=== PATIENT | female | born 1995 | race Caucasian/White ===

== ENCOUNTER 2017-09-14 21:17 | Inpatient (IN) | payer OTHER ==
[~2017-09-14] VITALS: Ht 175.3 cm; Wt 102.6 kg
[~2017-09-14 21:17] MED LIST: APRI28 PO; LAMO1TAB21 PO; NRN400 PO; OMEP20CA9 PO; PRZ1 PO; PXL/10 PO; RANI150T2 PO; ZYP5 PO
[2017-09-14] MEDS ORDERED: PRAZ2CAP2 PO (21:45)
[2017-09-14] MEDS ORDERED: ZYP10 PO (21:45)
[2017-09-14] MEDS ORDERED: DSY/150 PO (21:45)
[2017-09-14] MEDS ORDERED: GABA1CAP4 PO (21:45)
[2017-09-14 21:48] LABS: MANUAL MICROSCOPIC REQUIRED? NO; REVIEW REQ? NO; URINE APPEARANCE CLEAR (CLEAR); URINE BILIRUBIN NEG (NEG); URINE COLOR YELLOW; URINE EPITHELIAL CELL AUTO >30 /lpf (0-5); URINE NITRITE NEG (NEG); URINE PH 6.5 (4.5-7.5); URINE SPECIFIC GRAVITY 1.021 (1.000-1.030); UROBILINOGEN NEG (NEG); ZZUR CULT IF INDIC CLEAN CATCH NO
[2017-09-14 21:49] LABS: PREG INTERNAL NEGATIVE QC NEG CLEAR BACKGROUND; PREG INTERNAL POSITIVE QC POS CONTROL LINE
[2017-09-14 21:58] LABS: BASO % 0.3 %; BASO ABS # 0.03 K/uL (0-0.2); COMPLETE YES; EOS % 1.4 %; HEMATOCRIT 43.6 % (37-47); IG% 0.3 %; LYMPH ABS # 3.65 K/uL (1.2-3.4); MEAN CELL VOLUME 88.3 fL (80-100); MEAN CORPUSCULAR HEMOGLOBIN 30.4 pg (25-34); MEAN CORPUSCULAR HGB CONC 34.4 g/dl (32-36); MEAN PLATELET VOLUME 9.4 fL (7.4-10.4); MONO % 4.8 %; NEUT % 62.2 %; PLATELET COUNT 353 K/uL (130-400); RED BLOOD COUNT 4.94 M/uL (4.2-5.4); WHITE BLOOD COUNT 11.76 K/uL (4.8-10.8)
[2017-09-14] MEDS ORDERED: TRAZODONE HCL 100 MG TAB PO STA (22:11)
[2017-09-14] MEDS ORDERED: OLANZAPINE 10 MG TAB PO STA (22:11)
[2017-09-14] MEDS ORDERED: GABAPENTIN 300 MG CAP PO STA (22:11)
[2017-09-14 22:19] LABS: BLOOD UREA NITROGEN 8 mg/dl (7-18); BUN/CREATININE RATIO 9.7 (10-20); CALCIUM 8.7 mg/dl (8.5-10.1); CARBON DIOXIDE 24 mmol/L (21-32); CHLORIDE 106 mmol/L (98-107); CREATININE 0.82 mg/dl (0.60-1.20); GLUCOSE 125 mg/dl (70-99); POTASSIUM 3.4 mmol/L (3.5-5.1); SODIUM 137 mmol/L (136-145)
[2017-09-14 22:21] LABS: BUN/CREATININE RATIO 9.2 (10-20); CALCIUM 8.7 mg/dl (8.5-10.1); CREATININE 0.82 mg/dl (0.60-1.20); POTASSIUM 3.4 mmol/L (3.5-5.1)
[2017-09-14 22:23] LABS: ALKALINE PHOSPHATASE 78 U/L (45-117); ALT/SGPT 17 U/L (12-78); AST/SGOT 11 U/L (15-37)
[2017-09-14] MEDS ORDERED: POTASSIUM CHLORIDE 20 MEQ/15 ML UDC PO STA (22:23)
--- NOTE | 2017-09-14 22:23 | EMERGENCY ROOM VISIT NOTE ---
History Report prepared by Sary: Lakhwinder Frey Under the Supervision of: Dr. Ferny Goldstein M.D. First contact with patient: 21:32 Chief Complaint: MENTAL HEALTH EVALUATION Stated Complaint: MEDICAL CLEARANCE, EVAL History of Present Illness The patient is a 22 year old female who presents to the Emergency Room with complaints of intermittent suicidal ideations that began a couple of days ago. Per the patient's report the patient has a history PTSD, bipolar syndrome, depression, and possible schizophrenia. The patient attempted to kill herself when she was inpatient at the age of 11. The patient was recently admitted into [facility] in 2014. She recently attempted put a towel on a bar to hang herself a month ago. The patient states that she has been around her mother who has been causing her stress recently. She admits that she missed a dose of her medication last night because she did not expect to sleep at her boyfriend's place.The patient states that she has been having thoughts of suicide today. She states that she has not used heroine for a year, but has thought about buying more with attempts to hurt herself. The patient reports that her boyfriend called [facility] due to her suicidal ideations. The patient states that she no longer wants to and does not want to go back to "where I used to be". She reports that her last normal menstrual period was 2-3 weeks ago. The patient denies retaining a tampon and a possible . Source of History: patient Onset: a couple of days ago Position: other (global) Quality: other (global) Timing: intermittent Review of Systems See HPI for pertinent positives & negatives. A total of 10 systems reviewed and were otherwise negative. Past Medical & Surgical Medical Problems: (1) Anxiety (2) Bipolar disorder (3) Chronic abdominal pain (4) PTSD (post-traumatic stress disorder) Family History No significant family history Social History Smoking Status: Current Every Day Smoker Alcohol Use: none Drug Use: heroin, marijuana, other Marital Status: single Housing Status: other Occupation Status: unemployed Current/Historical Medications Scheduled Ethinyl Estrad/Desogestrel (Apri), 1 TAB PO DAILY Gabapentin (Gabapentin), 300 MG PO TID Olanzapine (Olanzapine), 10 MG PO HS Prazosin Hcl (Prazosin), 4 MG PO HS Ranitidine HCl (Ranitidine HCl), 150 MG PO BID Trazodone HCl (Trazodone HCl), 150 MG PO HS Allergies Coded Allergies: No Known Allergies (Unverified , 09/14/17) Physical Exam Vital Signs Date Time Temp Pulse Resp B/P (MAP) Pulse Ox O2 Delivery O2 Flow Rate FiO2 09/14/17 21:24 36.8 114 18 150/93 98 Room Air Physical Exam GENERAL: Patient is a healthy-appearing well-nourished 22 year old female. She is playing video games on her phone. HEAD: Normocephalic atraumatic EYES: Ocular movements intact pupils equal and react to light OROPHARYNX mucous membranes are moist no exudates present no erythema or edema present NECK: Supple no nuchal rigidity CHEST: Good equal expansion LUNGS: Clear and equal to auscultation CARDIAC: Normal S1 and S2 ABDOMEN: Soft nontender no guarding BACK: No CVA tenderness EXTREMITIES: No pain upon palpation normal muscle strength in all groups no clubbing cyanosis or edema NEURO: Patient is following commands and answering questions appropriately. Alert and oriented x3 Cranial Nerves 2-12 grossly intact Medical Decision & Procedures Laboratory Results 09/14/17 21:41 Red Blood Count 4.94, Mean Corpuscular Volume 88.3, Mean Corpuscular Hemoglobin 30.4, Mean Corpuscular Hemoglobin Concent 34.4, Mean Platelet Volume 9.4, Neutrophils (%) (Auto) 62.2, Lymphocytes (%) (Auto) 31.0, Monocytes (%) (Auto) 4.8, Eosinophils (%) (Auto) 1.4, Basophils (%) (Auto) 0.3, Neutrophils # (Auto) 7.32, Lymphocytes # (Auto) 3.65, Monocytes # (Auto) 0.56, Eosinophils # (Auto) 0.17, Basophils # (Auto) 0.03 09/14/17 21:41 Test 09/14/17 21:35 09/14/17 21:40 09/14/17 21:41 Urine Color YELLOW Urine Appearance CLEAR (CLEAR) Urine pH 6.5 (4.5-7.5) Urine Specific [place] 1.021 (1.000-1.030) Urine Protein NEG (NEG) Urine Glucose (UA) NEG (NEG) Urine Ketones NEG (NEG) Urine Occult Blood 2+ (NEG) Urine Nitrite NEG (NEG) Urine Bilirubin NEG (NEG) Urine Urobilinogen NEG (NEG) Urine Leukocyte Esterase TRACE (NEG) Urine WBC (Auto) 1-5 /hpf (0-5) Urine RBC (Auto) 10-30 /hpf (0-4) Urine Hyaline Casts (Auto) 0 /lpf (0-5) Urine Epithelial Cells (Auto) >30 /lpf (0-5) Urine Bacteria (Auto) NEG (NEG) Urine Test NEG (NEG) Urine Opiates Screen NEG (NEG) Urine Methadone, Qualitative NEG (NEG) Urine Barbiturates NEG (NEG) Urine Phencyclidine (PCP) Level NEG (NEG) Ur Amphetamine/Methamphetamine POS (NEG) MDMA (Ecstasy) Screen POS (NEG) Urine Benzodiazepines Screen NEG (NEG) Urine Cocaine Metabolite NEG (NEG) Urine Marijuana (THC) POS (NEG) White Blood Count 11.76 K/uL (4.8-10.8) Red Blood Count 4.94 M/uL (4.2-5.4) Hemoglobin 15.0 g/dL (12.0-16.0) Hematocrit 43.6 % (37-47) Mean Corpuscular Volume 88.3 fL (80-100) Mean Corpuscular Hemoglobin 30.4 pg (25-34) Mean Corpuscular Hemoglobin Concent 34.4 g/dl (32-36) Platelet Count 353 K/uL (130-400) Mean Platelet Volume 9.4 fL (7.4-10.4) Neutrophils (%) (Auto) 62.2 % Lymphocytes (%) (Auto) 31.0 % Monocytes (%) (Auto) 4.8 % Eosinophils (%) (Auto) 1.4 % Basophils (%) (Auto) 0.3 % Neutrophils # (Auto) 7.32 K/uL (1.4-6.5) Lymphocytes # (Auto) 3.65 K/uL (1.2-3.4) Monocytes # (Auto) 0.56 K/uL (0.11-0.59) Eosinophils # (Auto) 0.17 K/uL (0-0.5) Basophils # (Auto) 0.03 K/uL (0-0.2) RDW Standard Deviation 45.9 fL (36.4-46.3) RDW Coefficient of Variation 14.1 % (11.5-14.5) Immature Granulocyte % (Auto) 0.3 % Immature Granulocyte # (Auto) 0.03 K/uL (0.00-0.02) Anion Gap 8.0 mmol/L (3-11) Est Creatinine Clear Calc Drug Dose 129.5 ml/min Estimated GFR () 116.9 Estimated GFR (Non- 100.9 BUN/Creatinine Ratio 9.7 (10-20) Calcium Level 8.7 mg/dl (8.5-10.1) Total Bilirubin 0.2 mg/dl (0.2-1) Direct Bilirubin < 0.1 mg/dl (0-0.2) Aspartate Amino Transf (AST/SGOT) 11 U/L (15-37) Alanine Aminotransferase (ALT/SGPT) 17 U/L (12-78) Alkaline Phosphatase 78 U/L (45-117) Total Protein 8.2 gm/dl (6.4-8.2) Albumin 3.3 gm/dl (3.4-5.0) Globulin 4.8 gm/dl (2.5-4.0) Albumin/Globulin Ratio 0.7 (0.9-2) Thyroid Stimulating Hormone (TSH) 1.970 uIu/ml (0.300-4.500) Salicylates Level 3.3 mg/dl (2.8-20) Acetaminophen Level < 2 ug/ml (10-30) Ethyl Alcohol mg/dL < 3.0 mg/dl (0-3) Labs reviewed by ED physician. Medications Administered Medications (Trade) Dose Ordered Sig/Mary Carmen Route Start Time Stop Time Status Last Admin Dose Admin Gabapentin (Neurontin Cap) 300 mg NOW STAT PO 09/14/17 22:11 09/14/17 22:15 DC 09/14/17 23:22 300 MG Olanzapine (Zyprexa Tab) 10 mg NOW STAT PO 09/14/17 22:11 09/14/17 22:15 DC 09/14/17 23:22 10 MG Trazodone HCl (Desyrel Tab) 150 mg NOW STAT PO 09/14/17 22:11 09/14/17 22:15 DC 09/14/17 23:21 150 MG Potassium Chloride (Barbara Ciel Elix) 40 meq NOW STAT PO 09/14/17 22:23 09/14/17 22:24 DC 12/21/17 22:23 40 MEQ ED Course 0322: Past medical records reviewed. The patient was evaluated in room A06. A complete history and physical examination was performed. 2210: Ordered Trazodone HCl 150 mg PO, Olanzapine 10 mg PO, Gabapentin 300 mg PO. 3: Ordered Potassium Chloride 40 meq PO. 0900: Ordered Gabapentin 300 mg PO. Medical Decision Differential diagnosis: Etiologies such as mood disorder, infection, hypoglycemia, electrolyte abnormalities, cardiac sources, intracerebral event, toxicologic, neurologic, as well as others were entertained. This is a 22-year-old female who presents emergency department for any kill herself by taking a opiate overdose. Patient has multiple suicide attempts in the past. She has not taken her medication since last evening. The patient was given her evening meds here in the emergency department. She was discussed with case management and discussed with 3 S. who agreed to admit the patient. Patient was in agreement with the treatment plan. Medication Reconcilliation Current Medication List: was personally reviewed by me Blood Pressure Screening Patient's blood pressure: Elevated blood pressure Blood pressure disposition: Referred to PCP Impression Primary Impression: Mood disorder Scribe Attestation The scribe's documentation has been prepared under my direction and personally reviewed by me in its entirety. I confirm that the note above accurately reflects all work, treatment, procedures, and medical decision making performed by me. Departure Information Dispostion Mental Health Acute Care Referrals No Doctor, Assigned (PCP) Patient Instructions My [facility]
[2017-09-14 22:29] LABS: ACETAMINOPHEN < 2 ug/ml (10-30)
[2017-09-14 22:30] LABS: BENZODIAZEPINE, URINE NEG (NEG); COCAINE,URINE NEG (NEG); PHENCYCLIDINE, URINE NEG (NEG)
[2017-09-14 22:32] LABS: ALB/GLOB RATIO 0.7 (0.9-2); THYROID STIMULATING HORMONE 1.97 uIu/ml (0.300-4.500)
[2017-09-15] MEDS ORDERED: hydrOXYzine HCL 25 MG TAB PO PRN (00:15)
[2017-09-15] MEDS ORDERED: ALUMINUM/MAGNESIUM SUSP 30 ML UDC PO PRN (00:15)
[2017-09-15] MEDS ORDERED: MAGNESIUM HYDROXIDE SUSP 30 ML UDC PO PRN (00:15)
[2017-09-15] MEDS ORDERED: SODIUM CHLORIDE 0.65% NA SOLN 45 ML (OCEAN) PRN (00:15)
[2017-09-15] MEDS ORDERED: BISMUTH SUBSALICYLATE PER ML OMNICELL CHARGE PO PRN (00:15)
[2017-09-15] MEDS ORDERED: ACETAMINOPHEN 325 MG TAB PO PRN (00:15)
[2017-09-15 01:18] VITALS: BP 134/82; PULSE 85; TEMP 36.8; Ht 175.3 cm; Wt 102.6 kg
[2017-09-15] MEDS ORDERED: TRAZ100T29 PO (02:17)
[2017-09-15] MEDS ORDERED: PROP10TA7 PO (02:17)
[2017-09-15 06:58] VITALS: BP_SYST 136; BP_SYST 94; BP_DIAS 67; BP_DIAS 86; PULSE 81; TEMP 36.9
[2017-09-15] MEDS ORDERED: GABAPENTIN 300 MG CAP PO SCH (09:00)
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
[2017-09-15] MEDS: NICOTINE 21 MG/24 HR TDSY TD SCH (12:08)
[2017-09-15] MEDS: hydrOXYzine HCL 25 MG TAB PO PRN ×2 (12:10→20:24)
[2017-09-15] MEDS: LURASIDONE HCL 40 MG TAB PO SCH (12:41)
[2017-09-15] MEDS: NICOTINE POLACRILEX 2 MG GUM MT PRN ×4 (12:43→21:15)
[2017-09-15] MEDS ORDERED: NURSING VERBAL MED ORDER ONE ×2 (18:45)
[2017-09-15] MEDS: TRAZODONE HCL 50 MG TAB PO SCH (21:06)
[2017-09-15] MEDS: GABAPENTIN 300 MG CAP PO SCH (21:06)
[2017-09-15] MEDS: OLANZAPINE 5 MG TAB PO SCH (21:07)
[2017-09-15] MEDS: PRAZOSIN HCL 1 MG CAP PO SCH (21:07)
[2017-09-15 23:13] VITALS: PULSE 77; O2SAT 98
[2017-09-16 06:57] VITALS: BP_SYST 108; BP_SYST 127; BP_DIAS 66; BP_DIAS 77; PULSE 72; PULSE 73; TEMP 36.6
[2017-09-16 07:16] LABS: CHOLESTEROL/HDL RATIO 7.5
[2017-09-16 07:28] LABS: ESTIMATED AVERAGE GLUCOSE 108 mg/dl; HA1C FLAG Normal (Normal)
[2017-09-16] MEDS: NICOTINE POLACRILEX 2 MG GUM MT PRN ×3 (09:26→21:25)
[2017-09-16] MEDS: GABAPENTIN 300 MG CAP PO SCH ×3 (09:26→21:21)
[2017-09-16] MEDS: LURASIDONE HCL 40 MG TAB PO SCH (09:26)
[2017-09-16] MEDS: NICOTINE 21 MG/24 HR TDSY TD SCH (09:29)
--- NOTE | 2017-09-16 09:40 | Psychiatric Progress Notes ---
Progress Note Date of Service Sep 16, 2017. Interval History Ita Fuchs is a 22-year-old female who presents with suicidal thoughts accompanied by auditory and visual hallucinations. Diagnosis is clouded by substance use concurrent with hallucination history. Pt has been diagnosed with depression, anxiety, PTSD, bipolar disorder, schizophrenia, and ADHD by various providers during various hospitalizations. She states she is unsure at this point what is wrong with her because she has had so many diagnoses. Pt is open to medication changes and working with the treatment team. She states she is unwilling for inpatient rehab at this point, but would consider other treatment options for her significant substance abuse history. Chief Complaint "Tired.". Subjective Patient was seen & assessed interval progress reviewed with Treatment Team. She is tired this AM and still in bed. She says that she is unsure of her mood because she just woke up and is slow to think. She denies problems with sleep appetite or medication side effects. Nursing reports that she had a difficult phone call with her boyfriend last evening, feeling angry and frustrated with him. She doesn't trust him, he texts with other women saying intimate things. She makes derogatory comments about him. she is difficult to engage in discussion today due to feeling tired. She denies SI/HI, aud/vis hallucinations. Review of Systems Constitutional: + fatigue ENT: No hearing loss, No unusual epistaxis, No nasal symptoms, No sore throat, No tinnitus, No dental problems, No trouble swallowing, No problem reported Respiratory: No cough, No sputum, No wheezing, No shortness of breath, No dyspnea on exertion, No dyspnea at rest, No hemoptysis, No problem reported Cardiovascular: No chest pain, No orthopnea, No PND, No edema, No claudication , No palpitations, No problem reported Abdomen: No pain, No nausea, No vomiting, No diarrhea, No constipation, No GI bleeding, No problem reported Musculoskeletal: No joint pain, No muscle pain, No swelling, No calf pain, No problem reported Neurologic: No memory loss, No paralysis, No weakness, No numbness/tingling, No vertigo, No balance problems, No problem reported Psychiatric: No depression symptoms, No anhedonism, No anxiety, No insomnia, No substance abuse, No problem reported Sleep Information Total Hours of Sleep: 7.00 Meal Information Percent of Breakfast Consumed: 100 Percent of Lunch Consumed: 100 Percent of Dinner Consumed: 100 Mental Status Exam During interview pt is: alert and oriented, cooperative Appearance: appropriately dressed, disheveled (malodorous, reports has "not showered in a while") Eye contact is: good Motor behavior is: steady gait & station, no abnormal motor movements Speech: normal in rate, rhythm & volume Affect: mood congruent, blunted Mood is: depressed Thought process: goal directed, clear, coherent Thought content: reality based without delusions Suicidal thought are: denied Homicidal thoughts are: denied (though had voices telling her to "kill my family") Hallucinations: auditory (telling her to kill herself and family), visual ( glowing demons), tactile ("someone breathing on me") Cognition: memory grossly intact, attention grossly intact, language grossly intact Intelligence estimated to be: consistent with level of education Insight: impaired Judgement: impaired Impression Adjusting to the structure and support of the milieu, but tired and difficult to engage this AM. Is not generally a morning person and so will switch Latuda to dinner time starting tomorrow. Consider increasing to 40 mg thereafter and further taper Zyprexa. Plan (1) Mood disorder 09/15 - It remains difficult at this time to determine criteria for diagnosis due to patient's significant substance abuse history coinciding with psychiatric symptoms. Continue to monitor for auditory and visual hallucinations while on the unit and in absence of drugs. Will likely be able to clarify diagnosis as we are able to acquire more history and collateral information. Question bipolar disorder, currently depressive episode vs. schizophrenia vs. schizoaffective disorder vs. psychosis due to substance use. - Pt willing for medication changes as suicidal ideation is ongoing and medications have been causing ongoing weight gain. Will start Latuda and taper Zyprexa with plan to discontinue. Pt interested in starting Lamictal, but will wait on this due to other medication changes. Pt to get 20mg Latuda now with scheduled morning dose. Zyprexa decreased to 5mg at bedtime. - Encourage participation in group therapy and activities on the unit - Encourage family meeting with identified supports if appropriate - Coordinate care with outpatient providers. (2) Suicidal ideations 09/15 - Pt denies SI currently, but states thoughts have been ongoing for several years. - Continue every 15 minute safety checks - Encourage engagement in group activities and therapy - Encourage family meeting with potential supports if identified and seem appropriate - Coordination of care with outpatient providers (3) Substance abuse The patient reports significant history of substance abuse to include heroin, cocaine, meth, speed, marijuana, and alcohol. Brief intervention was offered and accepted. Intervention was greater than 5 min in length. Brief interventions include: 1. Assess Readiness to Quit, 2. Advise: Help Patient to Reduce or Abstain from drug use 3. Agree: Set Specific, Feasible Goals, 4. Assist: Anticipate barriers, Problem-Solving Solutions. Social work to 5. Arrange: Referrals to appropriate treatment. Summary of intervention: The patient is in precontemplation stage with regards to transtheoretical model of change. The patient is advised to decrease substance use due to risk of interference with medications and psychotropic actions of the substances she is abusing. Substance use potentially clouding the ability for proper diagnosis was discussed, and patient agreed. The patient agreed to consider her options for rehabilitation and will be provided with recovery materials to continue to education self on how to cope with their condition without resorting to substance use. She is not currently open to inpatient rehabilitation, but seems to be willing to discuss alternative treatment for her substance abuse history. 09/16 - Assist the patient to learn and utilize healthy coping strategies. - Recovery protocol (4) Post traumatic stress disorder (PTSD) 09/15 - Home dose of Prazosin 4mg qHS ordered for nightmares due to PTSD and abuse history. (5) Sleep apnea 09/15 - Ongoing sleep difficulty. Pt reports she was recently increased to Trazodone 200mg but has been groggy in the morning. Pt favorable to reducing dose back to 150mg to assess if that improves reported symptoms. Would ideally discontinue Trazodone altogether due to other conditions complicating sleep. She reports she has tried Vistaril in the past, discussed the option of trying Vistaril first with back up dose of trazodone, but patient was not open to considering due to other medication changes. - Pt reports she has a CPAP machine at home that she uses regularly, but is unsure if anyone would be available to bring it to her while she is hospitalized. Discharge / Aftercare Planning Therapist: Name: CYRUS Avery Beater Tender: Name: Vicente Visit Code E&M Code: 31057 Inventory Assets Strengths: contemplating rehab options, desire to engage in treatment while on unit Needs: potential for ongoing substance use when discharged, parents not supportive, strained relationship with boyfriend. Risk Factors Assessment : Yes /single/: Yes Health problems: No Mental Health Diagnoses: Yes Substance use disorders: Yes Previous attempt: Yes Previous psychiatric stay: Yes Hopelessness: Yes Smoker: Yes Protective Factors Assessment Hindu beliefs: No : No Responsible for young children: No Employed: No Supportive family: No Data Vital Signs Last 24 Hrs: Date Time Temp Pulse Resp B/P (MAP) Pulse Ox O2 Delivery O2 Flow Rate FiO2 09/16/17 06:57 36.6 72 16 108/66 73 127/77 09/15/17 23:13 77 98 Meds Administered Last 24 Hrs: Meds Administered (Past 24Hrs) Medications (Trade) Dose Ordered Sig/Mary Carmen Route Start Time Stop Time Status Last Admin Dose Admin Gabapentin (Neurontin Cap) 300 mg NOW STAT PO 09/14/17 22:11 09/14/17 22:15 DC 09/14/17 23:22 300 MG Olanzapine (Zyprexa Tab) 10 mg NOW STAT PO 09/14/17 22:11 09/15/17 11:01 DC 09/14/17 23:22 10 MG Trazodone HCl (Desyrel Tab) 150 mg NOW STAT PO 09/14/17 22:11 09/15/17 11:01 DC 09/14/17 23:21 150 MG Potassium Chloride (Barbara Ciel Elix) 40 meq NOW STAT PO 09/14/17 22:23 09/14/17 22:24 DC 09/14/17 22:23 40 MEQ Hydroxyzine HCl (Vistaril Tab) 25 mg Q4H PRN PO 09/15/17 00:15 10/15/17 00:14 09/15/17 20:24 25 MG Nicotine (Nicoderm Cq 21MG Patch) 1 patch QAM TD 09/15/17 12:00 10/15/17 11:59 09/15/17 12:08 1 PATCH Nicotine Polacrilex (Nicorette 2MG Gum) 1 piece Q2H PRN MT 09/15/17 11:00 10/15/17 10:59 09/15/17 21:15 1 PIECE Miscellaneous (Remove Nicoderm Patch) 1 ea HS N/A 09/15/17 22:00 10/15/17 21:59 09/15/17 21:16 1 EA Olanzapine (Zyprexa Tab) 5 mg HS PO 09/15/17 22:00 10/15/17 21:59 09/15/17 21:07 5 MG Lurasidone HCl (Latuda Tab) 20 mg QAM PO 09/15/17 11:00 10/15/17 10:59 09/15/17 12:41 20 MG Trazodone HCl (Desyrel Tab) 150 mg HS PO 09/15/17 22:00 10/15/17 21:59 09/15/17 21:06 150 MG Prazosin HCl (Prazosin) 4 mg HS PO 09/15/17 22:00 10/15/17 21:59 09/15/17 21:07 4 MG Gabapentin (Neurontin Cap) 300 mg TID PO 09/15/17 22:00 10/15/17 21:59 09/15/17 21:06 300 MG Lab Results Last 24 Hrs: Last 24 Hours Test 09/16/17 06:27 Sodium Level 137 mmol/L Potassium Level 4.0 mmol/L Chloride Level 107 mmol/L Carbon Dioxide Level 23 mmol/L Anion Gap 7.0 mmol/L Fasting Glucose 99 mg/dl Estimated Average Glucose 108 mg/dl Hemoglobin A1c 5.4 % Triglycerides Level 311 mg/dl Cholesterol Level 210 mg/dl HDL Cholesterol 28 mg/dl LDL Cholesterol, Calculated 120 mg/dl VLDL Cholesterol, Calculated 62 mg/dl Cholesterol/HDL Ratio 7.5
--- NOTE | 2017-09-16 09:41 | Psych Management Progress Note ---
Psychiatry Miscellaneous Date of Service: Sep 16, 2017. Patient seen, MS assessed. Rates mood as just OK, did use CPAP last pm, felt pressure might need adjusted. Encouraged cooperation with care and treatment plan as outlined by ABRADING MACHINE TENDER. Hgb A1C good, triglycerides over 300, consider omega 3, transitioning off of Zyprexa.
[2017-09-16] MEDS: TRAZODONE HCL 50 MG TAB PO SCH (21:21)
[2017-09-16] MEDS: PRAZOSIN HCL 1 MG CAP PO SCH (21:21)
[2017-09-16] MEDS: OLANZAPINE 5 MG TAB PO SCH (21:21)
[2017-09-16 23:10] VITALS: PULSE 81; O2SAT 98
[2017-09-17 06:58] VITALS: BP_SYST 108; BP_SYST 85; BP_DIAS 52; BP_DIAS 72; PULSE 62; PULSE 91; TEMP 36.7
[2017-09-17] MEDS: GABAPENTIN 300 MG CAP PO SCH ×3 (08:35→22:16)
[2017-09-17] MEDS: NICOTINE 21 MG/24 HR TDSY TD SCH (08:36)
--- NOTE | 2017-09-17 08:56 | Psychiatric Progress Notes ---
Progress Note Date of Service Sep 17, 2017. Interval History Ita Fuchs is a 22-year-old female who presents with suicidal thoughts accompanied by auditory and visual hallucinations. Diagnosis is clouded by substance use concurrent with hallucination history. Pt has been diagnosed with depression, anxiety, PTSD, bipolar disorder, schizophrenia, and ADHD by various providers during various hospitalizations. She states she is unsure at this point what is wrong with her because she has had so many diagnoses. Pt is open to medication changes and working with the treatment team. She states she is unwilling for inpatient rehab at this point, but would consider other treatment options for her significant substance abuse history. Chief Complaint "Tired. ". Subjective Patient was seen & assessed interval progress reviewed with Treatment Team. The patient feels tired today saying that she is "bored". Her mood is "pretty good", rated 8/10. She is feeling sluggish all day and nursing reports that she spends most of her time in bed, and not attending groups. She denies SI/HI , denies aud/vis hallucinations. She denies any side effects to meds, but notes that she feels hungrier today than she has, which is a concern to her given her weight gain. She has nothing she would like to discuss today. She does not feel that her fatigue has anything to do with coming off of drugs. Review of Systems Constitutional: + fatigue ENT: No hearing loss, No unusual epistaxis, No nasal symptoms, No sore throat, No tinnitus, No dental problems, No trouble swallowing, No problem reported Respiratory: No cough, No sputum, No wheezing, No shortness of breath, No dyspnea on exertion, No dyspnea at rest, No hemoptysis, No problem reported Cardiovascular: No chest pain, No orthopnea, No PND, No edema, No claudication , No palpitations, No problem reported Abdomen: + problem reported (increased appetite) Musculoskeletal: No joint pain, No muscle pain, No swelling, No calf pain, No problem reported Neurologic: No memory loss, No paralysis, No weakness, No numbness/tingling, No vertigo, No balance problems, No problem reported Psychiatric: + depression symptoms (fatigue) Integumentary: No rash, No itch, No new/changing skin lesions, No color change , No bleeding, No problem reported Sleep Information Total Hours of Sleep: 9.00 Meal Information Percent of Breakfast Consumed: 100 Percent of Lunch Consumed: 100 Percent of Dinner Consumed: 100 Mental Status Exam During interview pt is: alert and oriented, cooperative Appearance: appropriately dressed, disheveled Eye contact is: good Motor behavior is: steady gait & station, no abnormal motor movements Speech: normal in rate, rhythm & volume Affect: mood congruent, blunted Mood is: depressed Thought process: goal directed, clear, coherent Thought content: reality based without delusions Suicidal thought are: denied Homicidal thoughts are: denied Hallucinations: auditory, visual, tactile Cognition: memory grossly intact, attention grossly intact, language grossly intact Intelligence estimated to be: consistent with level of education Insight: impaired Judgement: impaired Impression Remains tired and poorly participatory in groups. Will further reduce trazodone to 100 mg. HS and continue latuda titration to 40 mg. with dinner starting tomorrow. Will DC Zyprexa. Labs reviewed including triglycerides 311 and total cholesterol 311. Will need to be monitored outpatient. Plan (1) Mood disorder 09/15 - It remains difficult at this time to determine criteria for diagnosis due to patient's significant substance abuse history coinciding with psychiatric symptoms. Continue to monitor for auditory and visual hallucinations while on the unit and in absence of drugs. Will likely be able to clarify diagnosis as we are able to acquire more history and collateral information. Question bipolar disorder, currently depressive episode vs. schizophrenia vs. schizoaffective disorder vs. psychosis due to substance use. - Pt willing for medication changes as suicidal ideation is ongoing and medications have been causing ongoing weight gain. Will start Latuda and taper Zyprexa with plan to discontinue. Pt interested in starting Lamictal, but will wait on this due to other medication changes. Pt to get 20mg Latuda now with scheduled morning dose. Zyprexa decreased to 5mg at bedtime. - Encourage participation in group therapy and activities on the unit - Encourage family meeting with identified supports if appropriate - Coordinate care with outpatient providers. 09/17 - Increase Latuda to 40 mg. with dinner starting tomorrow, while DC zyprexa - Decrease trazodone to 100 mg. HS due to sedation. (2) Suicidal ideations 09/15 - Pt denies SI currently, but states thoughts have been ongoing for several years. - Continue every 15 minute safety checks - Encourage engagement in group activities and therapy - Encourage family meeting with potential supports if identified and seem appropriate - Coordination of care with outpatient providers (3) Substance abuse The patient reports significant history of substance abuse to include heroin, cocaine, meth, speed, marijuana, and alcohol. Brief intervention was offered and accepted. Intervention was greater than 5 min in length. Brief interventions include: 1. Assess Readiness to Quit, 2. Advise: Help Patient to Reduce or Abstain from drug use 3. Agree: Set Specific, Feasible Goals, 4. Assist: Anticipate barriers, Problem-Solving Solutions. Social work to 5. Arrange: Referrals to appropriate treatment. Summary of intervention: The patient is in precontemplation stage with regards to transtheoretical model of change. The patient is advised to decrease substance use due to risk of interference with medications and psychotropic actions of the substances she is abusing. Substance use potentially clouding the ability for proper diagnosis was discussed, and patient agreed. The patient agreed to consider her options for rehabilitation and will be provided with recovery materials to continue to education self on how to cope with their condition without resorting to substance use. She is not currently open to inpatient rehabilitation, but seems to be willing to discuss alternative treatment for her substance abuse history. 09/16 - Assist the patient to learn and utilize healthy coping strategies. - Recovery protocol (4) Post traumatic stress disorder (PTSD) 09/15 - Home dose of Prazosin 4mg qHS ordered for nightmares due to PTSD and abuse history. (5) Sleep apnea 09/15 - Ongoing sleep difficulty. Pt reports she was recently increased to Trazodone 200mg but has been groggy in the morning. Pt favorable to reducing dose back to 150mg to assess if that improves reported symptoms. Would ideally discontinue Trazodone altogether due to other conditions complicating sleep. She reports she has tried Vistaril in the past, discussed the option of trying Vistaril first with back up dose of trazodone, but patient was not open to considering due to other medication changes. - Pt reports she has a CPAP machine at home that she uses regularly, but is unsure if anyone would be available to bring it to her while she is hospitalized. Discharge / Aftercare Planning Therapist: Name: CYRUS Avery Event Sales Manager: Name: Vicente Visit Code E&M Code: 43823 Inventory Assets Strengths: contemplating rehab options, desire to engage in treatment while on unit Needs: potential for ongoing substance use when discharged, parents not supportive, strained relationship with boyfriend. Risk Factors Assessment : Yes /single/: Yes Health problems: No Mental Health Diagnoses: Yes Substance use disorders: Yes Previous attempt: Yes Previous psychiatric stay: Yes Hopelessness: Yes Smoker: Yes Protective Factors Assessment Druze beliefs: No : No Responsible for young children: No Employed: No Supportive family: No Data Vital Signs Last 24 Hrs: Date Time Temp Pulse Resp B/P (MAP) Pulse Ox O2 Delivery O2 Flow Rate FiO2 09/17/17 06:58 36.7 62 16 85/52 91 108/72 09/16/17 23:10 81 98 Meds Administered Last 24 Hrs: Meds Administered (Past 24Hrs) Medications (Trade) Dose Ordered Sig/Mary Carmen Route Start Time Stop Time Status Last Admin Dose Admin Nicotine (Nicoderm Cq 21MG Patch) 1 patch QAM TD 09/15/17 12:00 10/15/17 11:59 09/17/17 08:36 1 PATCH Nicotine Polacrilex (Nicorette 2MG Gum) 1 piece Q2H PRN MT 09/15/17 11:00 10/15/17 10:59 09/16/17 21:25 1 PIECE Miscellaneous (Remove Nicoderm Patch) 1 ea HS N/A 09/15/17 22:00 10/15/17 21:59 09/15/17 21:16 1 EA Olanzapine (Zyprexa Tab) 5 mg HS PO 09/15/17 22:00 10/15/17 21:59 09/16/17 21:21 5 MG Lurasidone HCl (Latuda Tab) 20 mg QAM PO 09/15/17 11:00 09/16/17 09:47 DC 09/16/17 09:26 20 MG Trazodone HCl (Desyrel Tab) 150 mg HS PO 09/15/17 22:00 10/15/17 21:59 09/16/17 21:21 150 MG Prazosin HCl (Prazosin) 4 mg HS PO 09/15/17 22:00 10/15/17 21:59 09/16/17 21:21 4 MG Gabapentin (Neurontin Cap) 300 mg TID PO 09/15/17 22:00 10/15/17 21:59 09/17/17 08:35 300 MG Lab Results Last 24 Hrs: 09/14/17 21:41 Red Blood Count 4.94, Mean Corpuscular Volume 88.3, Mean Corpuscular Hemoglobin 30.4, Mean Corpuscular Hemoglobin Concent 34.4, Mean Platelet Volume 9.4, Neutrophils (%) (Auto) 62.2, Lymphocytes (%) (Auto) 31.0, Monocytes (%) (Auto) 4.8, Eosinophils (%) (Auto) 1.4, Basophils (%) (Auto) 0.3, Neutrophils # (Auto) 7.32, Lymphocytes # (Auto) 3.65, Monocytes # (Auto) 0.56, Eosinophils # (Auto) 0.17, Basophils # (Auto) 0.03 09/14/17 21:41 09/16/17 06:27 Test 09/14/17 21:35 09/14/17 21:40 09/14/17 21:41 09/16/17 06:27 Urine Color YELLOW Urine Appearance CLEAR (CLEAR) Urine pH 6.5 (4.5-7.5) Urine Specific [place] 1.021 (1.000-1.030) Urine Protein NEG (NEG) Urine Glucose (UA) NEG (NEG) Urine Ketones NEG (NEG) Urine Occult Blood 2+ (NEG) Urine Nitrite NEG (NEG) Urine Bilirubin NEG (NEG) Urine Urobilinogen NEG (NEG) Urine Leukocyte Esterase TRACE (NEG) Urine WBC (Auto) 1-5 /hpf (0-5) Urine RBC (Auto) 10-30 /hpf (0-4) Urine Hyaline Casts (Auto) 0 /lpf (0-5) Urine Epithelial Cells (Auto) >30 /lpf (0-5) Urine Bacteria (Auto) NEG (NEG) Urine Test NEG (NEG) Urine Opiates Screen NEG (NEG) Urine Methadone, Qualitative NEG (NEG) Urine Barbiturates NEG (NEG) Urine Phencyclidine (PCP) Level NEG (NEG) Ur Amphetamine/Methamphetamine POS (NEG) MDMA (Ecstasy) Screen POS (NEG) Urine Benzodiazepines Screen NEG (NEG) Urine Cocaine Metabolite NEG (NEG) Urine Marijuana (THC) POS (NEG) White Blood Count 11.76 K/uL (4.8-10.8) Red Blood Count 4.94 M/uL (4.2-5.4) Hemoglobin 15.0 g/dL (12.0-16.0) Hematocrit 43.6 % (37-47) Mean Corpuscular Volume 88.3 fL (80-100) Mean Corpuscular Hemoglobin 30.4 pg (25-34) Mean Corpuscular Hemoglobin Concent 34.4 g/dl (32-36) Platelet Count 353 K/uL (130-400) Mean Platelet Volume 9.4 fL (7.4-10.4) Neutrophils (%) (Auto) 62.2 % Lymphocytes (%) (Auto) 31.0 % Monocytes (%) (Auto) 4.8 % Eosinophils (%) (Auto) 1.4 % Basophils (%) (Auto) 0.3 % Neutrophils # (Auto) 7.32 K/uL (1.4-6.5) Lymphocytes # (Auto) 3.65 K/uL (1.2-3.4) Monocytes # (Auto) 0.56 K/uL (0.11-0.59) Eosinophils # (Auto) 0.17 K/uL (0-0.5) Basophils # (Auto) 0.03 K/uL (0-0.2) RDW Standard Deviation 45.9 fL (36.4-46.3) RDW Coefficient of Variation 14.1 % (11.5-14.5) Immature Granulocyte % (Auto) 0.3 % Immature Granulocyte # (Auto) 0.03 K/uL (0.00-0.02) Est Creatinine Clear Calc Drug Dose 129.5 ml/min Estimated GFR () 116.9 Estimated GFR (Non- 100.9 BUN/Creatinine Ratio 9.7 (10-20) Calcium Level 8.7 mg/dl (8.5-10.1) Total Bilirubin 0.2 mg/dl (0.2-1) Direct Bilirubin < 0.1 mg/dl (0-0.2) Aspartate Amino Transf (AST/SGOT) 11 U/L (15-37) Alanine Aminotransferase (ALT/SGPT) 17 U/L (12-78) Alkaline Phosphatase 78 U/L (45-117) Total Protein 8.2 gm/dl (6.4-8.2) Albumin 3.3 gm/dl (3.4-5.0) Globulin 4.8 gm/dl (2.5-4.0) Albumin/Globulin Ratio 0.7 (0.9-2) Thyroid Stimulating Hormone (TSH) 1.970 uIu/ml (0.300-4.500) Salicylates Level 3.3 mg/dl (2.8-20) Acetaminophen Level < 2 ug/ml (10-30) Ethyl Alcohol mg/dL < 3.0 mg/dl (0-3) Anion Gap 7.0 mmol/L (3-11) Fasting Glucose 99 mg/dl (70-99) Estimated Average Glucose 108 mg/dl Hemoglobin A1c 5.4 % (4.5-5.6) Triglycerides Level 311 mg/dl (0-150) Cholesterol Level 210 mg/dl (0-200) HDL Cholesterol 28 mg/dl LDL Cholesterol, Calculated 120 mg/dl VLDL Cholesterol, Calculated 62 mg/dl Cholesterol/HDL Ratio 7.5
[2017-09-17] MEDS: NICOTINE POLACRILEX 2 MG GUM MT PRN ×3 (12:38→20:02)
[2017-09-17] MEDS: hydrOXYzine HCL 25 MG TAB PO PRN (14:14)
[2017-09-17] MEDS ORDERED: LURASIDONE HCL 40 MG TAB PO SCH ×2 (17:00)
[2017-09-17] MEDS ORDERED: TRAZODONE HCL 100 MG TAB PO SCH (22:00)
[2017-09-17] MEDS: PRAZOSIN HCL 1 MG CAP PO SCH (22:16)
[2017-09-17 23:16] VITALS: PULSE 76; O2SAT 97
[2017-09-18 06:46] VITALS: BP_SYST 121; BP_SYST 93; BP_DIAS 60; BP_DIAS 80; PULSE 71; PULSE 99; TEMP 36.8
[2017-09-18] MEDS: GABAPENTIN 300 MG CAP PO SCH (08:22)
[2017-09-18] MEDS: NICOTINE 21 MG/24 HR TDSY TD SCH (08:24)
[2017-09-18] MEDS ORDERED: TRAZODONE HCL 100 MG TAB PO SCH (09:00)
[2017-09-18] MEDS ORDERED: GABAPENTIN 300 MG CAP PO SCH (09:00)
[2017-09-18] MEDS ORDERED: LURASIDONE HCL 40 MG TAB PO SCH (09:00)
[2017-09-18] MEDS ORDERED: PRAZOSIN HCL 1 MG CAP PO SCH (09:00)
[2017-09-18] MEDS ORDERED: GABA1CAP4 PO (09:01)
[2017-09-18] MEDS ORDERED: TRAZ100T29 PO (09:01)
[2017-09-18] MEDS ORDERED: PRAZ2CAP2 PO (09:01)
[2017-09-18] MEDS ORDERED: LTD40 PO (09:01)
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
[2017-09-18] MEDS: NICOTINE POLACRILEX 2 MG GUM MT PRN (09:57)
[2017-09-18] MEDS ORDERED: DESTROY THIS MEDICATION ONE (10:00)
[2017-09-21 15:31] LABS: SYNTHETIC CANNABINOIDS QL URIN NEGATIVE (Negative)
== END 2017-09-18 12:40 | disposition home or self-care (01) | DRG 885 ==
LOC: C.EDB 21:19 → C.MHU 23:53
PROVIDERS: ADMIT Psychiatry & Neurology Psychiatry; ATTEND Psychiatry & Neurology Child & Adolescent Psychiatry
DX: F39 Unspecified mood [affective] disorder (principal); R45.851 Suicidal ideations; F43.10 Post-traumatic stress disorder, unspecified; F14.10 Cocaine abuse, uncomplicated; F12.10 Cannabis abuse, uncomplicated; F11.10 Opioid abuse, uncomplicated; F15.10 Other stimulant abuse, uncomplicated; F10.10 Alcohol abuse, uncomplicated; F17.200 Nicotine dependence, unspecified, uncomplicated; G47.30 Sleep apnea, unspecified; E66.9 Obesity, unspecified; Z79.899 Other long term (current) drug therapy; Z68.33 Body mass index [BMI] 33.0-33.9, adult; Z81.8 Family history of other mental and behavioral disorders; Z81.1 Family history of alcohol abuse and dependence; Z81.3 Family history of other psychoactive substance abuse and dependence

== ENCOUNTER → 2017-10-02 | Outpatient (CLI) | payer OTHER ==
[~2017-10-02] MED LIST changes: +GABA1CAP4 PO; -LAMO1TAB21 PO; +LTD40 PO; -NRN400 PO; -OMEP20CA9 PO; +PRAZ2CAP2 PO; -PRZ1 PO; -PXL/10 PO; +TRAZ100T29 PO; -ZYP5 PO
== END | disposition home or self-care (01) ==
LOC: C.LABBFT 13:45
PROVIDERS: ATTEND Nurse Practitioner
DX: B19.20 Unspecified viral hepatitis C without hepatic coma (principal)

== ENCOUNTER → 2017-11-23 | Outpatient (CLI) | payer OTHER ==
[~2017-11-23] MED LIST changes: +GABA-1219 PO; -GABA1CAP4 PO
[2017-11-23 17:42] LABS: BASO % 0.4 %; BASO ABS # 0.04 K/uL (0-0.2); EOS ABS # 0.11 K/uL (0-0.5); HEMOGLOBIN 14.5 g/dL (12.0-16.0); IG# 0.04 K/uL (0.00-0.02); LYMPH % 18.9 %; LYMPH ABS # 2.13 K/uL (1.2-3.4); MEAN CORPUSCULAR HEMOGLOBIN 30.3 pg (25-34); MEAN CORPUSCULAR HGB CONC 33.7 g/dl (32-36); MEAN PLATELET VOLUME 9.6 fL (7.4-10.4); MONO % 3.9 %; MONO ABS # 0.44 K/uL (0.11-0.59); NEUT % 75.4 %; NEUT ABS # 8.49 K/uL (1.4-6.5); PLATELET COUNT 314 K/uL (130-400); RED CELL DISTRIBUTION WIDTH CV 14.6 % (11.5-14.5); RED CELL DISTRIBUTION WIDTH SD 47.7 fL (36.4-46.3); WHITE BLOOD COUNT 11.25 K/uL (4.8-10.8)
[2017-11-23 17:56] LABS: ALBUMIN 3.7 gm/dl (3.4-5.0); ALT/SGPT 43 U/L (12-78); AST/SGOT 22 U/L (15-37); BLOOD UREA NITROGEN 13 mg/dl (7-18); CARBON DIOXIDE 22 mmol/L (21-32); CREATININE 0.73 mg/dl (0.60-1.20); GLUCOSE 89 mg/dl (70-99); POTASSIUM 3.8 mmol/L (3.5-5.1); SODIUM 138 mmol/L (136-145)
[2017-11-23 18:08] LABS: ALKALINE PHOSPHATASE 94 U/L (45-117); CHOLESTEROL 246 mg/dl (0-200); LDL CHOLESTEROL CALCULATED 169 mg/dl; TOTAL PROTEIN 8.2 gm/dl (6.4-8.2)
== END | disposition home or self-care (01) ==
LOC: C.LABBFT 14:48
PROVIDERS: ATTEND Physician Assistant
DX: Z79.899 Other long term (current) drug therapy (principal)

== ENCOUNTER 2023-11-02 10:44 | Inpatient (IN) ==
[2023-11-02] MEDS ORDERED: LIDOCAINE 1% LOCAL 20 ML VIAL INFIL PRN (12:24)
[2023-11-02] MEDS ORDERED: OXYTOCIN 30 UNITS/NSS 30 UNITS/500 ML BAG IV PRN (12:24)
[2023-11-02] MEDS: LACTATED RINGER'S 1,000 ML IV PRN (12:30)
[2023-11-02] MEDS: PENICILLIN GK 6 MU in DEXTROSE 5% 250 ML IV STA (12:59)
[2023-11-02 13:00] LABS: Hematocrit (blood only) 37.1 % (37.0-47.0); Hemoglobin 12.2 g/dl (12.0-16.0); Mean Corpuscular Hemoglobin 28.6 pg (25.0-34.0); Mean Corpuscular Hgb Conc 32.9 g/dL (32.0-36.0); Mean Corpuscular Volume 86.9 fL (80.0-100.0); Mean Platelet Volume 10.1 fL (9.4-12.4); Platelet Count 275 K/uL (130-400); RDW Coefficient of Variation 14.9 % (11.5-14.5); RDW Standard Deviation 47.2 fL (36.4-46.3); Red Blood Count 4.27 M/uL (4.20-5.40); White Blood Count 10.42 K/ul (4.8-10.8)
[2023-11-02] MEDS: miSOPROStoL 50 MCG TAB PO ONE ×2 (13:09→21:17)
[2023-11-02 15:34] LABS: Amphetamines+Metham, Urine Neg (Neg); Barbiturates, Urine Neg (Neg); Benzodiazepine, Urine Neg (Neg); Cocaine, Urine Neg (Neg); MDMA (Ecstacy), Urine Neg (Neg); Marijuana, Urine Neg (Neg); Methadone, Urine Neg (Neg); Opiate, Urine Neg (Neg); Phencyclidine, Urine Neg (Neg)
[2023-11-02] MEDS: miSOPROStoL 50 MCG TAB PO PRN (17:13)
[2023-11-02] MEDS: PENICILLIN GK 3 MU in DEXTROSE 5% 100 ML IV PRN (17:18)
[2023-11-02] MEDS: BUTORPHANOL TARTRATE 1 MG/ML VIAL IV PRN (23:40)
[2023-11-03] MEDS: SODIUM CHLORIDE 0.9% PF INJ 10 ML VIAL ONE (07:33)
[2023-11-03] MEDS: BUPIVACAINE 0.25% PF 30 ML VIAL ONE (07:33)
[2023-11-03] MEDS: fentANYL 2 MCG/ML BUPIVacaine 0.125%-NSS 100ML BAG ONE (07:33)
[2023-11-03] MEDS: LIDOCAINE 2%/EPINEPHRINE 1:200,000 20 ML PF ONE (07:33)
[2023-11-03] MEDS ORDERED: diphenhydrAMINE 50 MG/ML VIAL IV PRN (07:40)
[2023-11-03] MEDS ORDERED: ONDANSETRON INJ 2 MG/ML 2 ML VIAL IV PRN (07:40)
[2023-11-03] MEDS ORDERED: NALOXONE HCL 0.4 MG/1 ML VIAL/CARP IV PRN (07:40)
[2023-11-03] MEDS ORDERED: SODIUM CHLORIDE 0.9% PF INJ 10 ML VIAL EPI PRN (07:40)
[2023-11-03] MEDS ORDERED: NALOXONE HCL 1 MG in SODIUM CHLORIDE 0.9% 1,000 ML IV PRN (07:40)
[2023-11-03] MEDS ORDERED: ROPIVACAINE 0.5% PF 5 MG/ML 20 ML VIAL EPI PRN (07:40)
[2023-11-03] MEDS ORDERED: ePHEDrine sulfate 50 MG/ML AMP IV PRN (07:40)
[2023-11-03] MEDS ORDERED: LIDOCAINE 2% MPF LOCAL 5 ML VIAL EPI PRN (07:40)
[2023-11-03] MEDS ORDERED: NALBUPHINE HCL 5 MG in SYRINGE 0 ML IV PRN (07:40)
[2023-11-03] MEDS ORDERED: fentANYL 2 MCG/ML BUPIVacaine 0.125%-NSS 100ML BAG EPI PRN (07:40)
[2023-11-03] MEDS ORDERED: BUPIVACAINE 0.25% PF 30 ML VIAL EPI PRN (07:40)
[2023-11-03] MEDS ORDERED: fentaNYL citrate PF 100 MCG/2 ML VIAL EPI PRN (07:40)
--- NOTE | 2023-11-03 07:40 | Anesthesiology Consultation ---
Date of Service November 03, 2023 Assessment & Plan Chart Review Chart Review: Patient NOT seen in Pre Admission Testing and Acceptable Risk for Labor Epidural Consults Requested none ASA ASA3 Proposed Anesthesia Anesthesia Type: Labor Epidural Risk / Benefits Reviewed With: PT / POA / Parent / Guardian, Accepts Plan and Informed Consent Obtained History Height/Weight Height: 5 ft 9 in Weight: 127.913 kg Allergies Allergy/AdvReac Type Severity Reaction Status Date / Time ragweed pollen Allergy Severe Anaphylaxis Verified 07/27/23 10:32 banana Allergy Anaphylaxis Verified 07/27/23 10:32 Medications Home Medications Medication Instructions Recorded Confirmed Last Taken vits no.126-ferrous fum 1 tab PO DAILY 06/22/23 11/02/23 11/02/23 08:00 28 mg iron-folic acid 800 mcg tablet (Classic ) cholecalciferol (vitamin D3) 125 125 mcg PO DAILY #30 caps 06/26/23 11/02/23 11/02/23 08:00 mcg (5,000 unit) capsule Active Medications Generic Name Dose Route Start Last Admin Trade Name Freq PRN Reason Stop Dose Admin Butorphanol Tartrate 2 mg 11/02/23 22:22 11/03/23 04:17 Butorphanol Tartrate 1 Mg/Ml Vial IV 12/02/23 22:21 2 mg Q2R PRN Administration Pain Lactated Ringer's 1,000 mls @ 125 mls/hr 11/02/23 12:24 11/02/23 23:39 Lr IV 11/04/23 12:23 125 mls/hr .Q8H PRN Administration L&D Protocol Protocol Penicillin G Potassium 3 mu/ 106 mls @ 100 mls/hr 11/02/23 15:24 11/03/23 05:56 Dextrose IV 11/12/23 15:23 100 mls/hr Q4H PRN Administration GBS(+) Until Delivery Misoprostol 50 mcg 11/02/23 16:48 11/03/23 01:43 Misoprostol 50 Mcg Tab PO 12/02/23 16:47 50 mcg Q4 PRN Administration Contractions Past Medical History Medical History (Updated 11/02/23 @ 12:08 by Aleja Olivera RN) Hepatitis C carrier Borderline personality disorder Prediabetes Obesity, morbid, BMI 40.0-49.9 Hypertriglyceridemia Chronic low back pain with sciatica TAWANDA (obstructive sleep apnea) cpap Substance abuse cocaine, marijuana, etc Post traumatic stress disorder (PTSD) Overdose hx of heroin overdose Bipolar disorder Depression Suicidal ideation hx of Chronic abdominal pain Anxiety Exercise / Class Metabolic Activity II 4-5 Yardwork/Stairs/Walk up hill Past Family History Family History Grandmother (Paternal) Cervical cancer Grandfather (Paternal) Liver cancer Mother Myocardial infarction Other Diabetes Denies family history of Ovarian cancer Prostate cancer Breast cancer Lung cancer Colorectal cancer Stroke Past Surgical History Surgical History S/P left knee arthroscopy Past Anesthesia History No Hx of Anesthesia Complications and No Family Hx of Anesthesia Complications History of PONV No Hx of PONV and No Hx of Motion Sickness Social History Smoking Status: Former smoker tobacco type: cigarettes Smoking cigarettes per day: previous heavy cigarette smoker (age [age]); current cigar smoker (2 a day) Do You Dip or Chew Tobacco: No Hx Alcohol Use: No alcohol intake frequency: a few times a month Hx Substance Use: Yes substance use type: marijuana Substance Use Type Other:: hx of heroin, crack use Last Used Substance Other:: "Quit when I found out " Physical Exam Vital Signs Last Vital Signs Temp 37.0 C 11/03/23 05:00 Pulse 87 11/03/23 07:37 Resp 18 11/03/23 05:00 BP 121/68 11/03/23 07:37 Pulse Ox 96 11/03/23 07:35 ENMT Mouth: no dentition abnormality Thyromental Distance: > or= 3.5 Finger Breadths Mallampati Class: II Neck normal visual inspection Respiratory normal respiratory effort Auscultation: lungs clear to auscultation bilaterally Cardiovascular Rate/Rhythm: regular rate and regular rhythm Psychiatric Orientation: alert Testing Laboratory Results 11/02/23 12:31 Blood Type O Positive 11/02/23 12:31 Antibody Screen NEGATIVE 11/02/23 12:31
[2023-11-03] MEDS ORDERED: OXYTOCIN 30 UNITS/NSS 30 UNITS/500 ML BAG IV PRN ×2 (07:52→14:48)
[2023-11-03] MEDS: OXYTOCIN 30 UNITS/NSS 30 UNITS/500 ML BAG IV PRN (08:11)
[2023-11-03] MEDS: fentaNYL citrate PF 100 MCG/2 ML VIAL EPI STA (09:14)
[2023-11-03] MEDS: BUPIVACAINE 0.25% PF 30 ML VIAL EPI STA (09:14)
[2023-11-03] MEDS: fentaNYL citrate PF 100 MCG/2 ML VIAL ONE (09:14)
[2023-11-03] MEDS: LIDOCAINE 2%/EPINEPHRINE 1:200,000 20 ML PF EPI STA (09:15)
[2023-11-03] MEDS: SODIUM CHLORIDE 0.9% PF INJ 10 ML VIAL EPI STA (09:15)
[2023-11-03] MEDS ORDERED: HYDROCORTISONE ACETATE 25 MG SUPP PR PRN (14:48)
[2023-11-03] MEDS ORDERED: oxyCODONE/ACETAMINOPHEN 5mg/325mg TAB PO PRN (14:48)
[2023-11-03] MEDS ORDERED: bisacodyL 10 MG SUPP PR PRN (14:48)
[2023-11-03] MEDS ORDERED: ACETAMINOPHEN W/CODEINE #3 1 TAB PO PRN (14:48)
--- NOTE | 2023-11-03 14:56 | Delivery Summary ---
Vaginal Delivery Summary Date of Service November 03, 2023 Vaginal Delivery Summary Patient's been followed in our office for care and delivery. Patient's been well dated with a first trimester ultrasound. Patient's had some problems with her blood sugar. He has been seeing a diabetic specialist. Abdominal ultrasound approximately 7 days prior to delivery showed no discrepancy between the abdominal circumference and the head circumference and an estimated weight at that time of over 7 pounds. Patient was admitted at 37 weeks and 6 days with jackelyn rupture of membranes. She also had positive beta strep culture strep was treated with penicillin IV we gave her p.o. Cytotec 50 mcg approximately 4 sequential doses every 4 hours 1 dose of Stadol 2 mg she then requested and received epidural anesthesia. And then we augmented her contractions with Pitocin she had good steady progress in labor the head was low when she started to dilate she went to full dilatation with about 1 hour pushing pushed out a live female infant via direct occiput anterior position over an intact perineum. Cord was allowed to pulse for 1 minute. Was then clamped cut by the father. Cord blood was taken. With IV Pitocin running the placenta was removed intact. Inspection of the perineum revealed a small laceration at 3:00 on the hymenal ring which was bleeding. This was sutured with a triple Vicryl. Following this patch examination revealed no hematoma formation or sponges in the vagina. Uterus contracted nicely. Estimated blood loss 100 mL.
[2023-11-03] MEDS: METHYLERGONOVINE MALEATE 0.2 MG/ML AMP IM ONE (15:25)
[2023-11-03] MEDS: BENZOCAINE 20% SPRY 85 APPLN/85 GM CAN EXT PRN (17:45)
[2023-11-03] MEDS: IBUPROFEN 600 MG TAB PO PRN (17:45)
[2023-11-03] MEDS: DOCUSATE SODIUM 100 MG CAP PO SCH (21:53)
[2023-11-04 06:44] LABS: Hemoglobin 10.6 g/dl (12.0-16.0); Mean Corpuscular Hemoglobin 28.6 pg (25.0-34.0); Mean Corpuscular Hgb Conc 32.1 g/dL (32.0-36.0); Mean Corpuscular Volume 88.9 fL (80.0-100.0); Platelet Count 226 K/uL (130-400); Red Blood Count 3.71 M/uL (4.20-5.40); White Blood Count 9.61 K/ul (4.8-10.8)
[2023-11-04] MEDS: PRENATAL VITAMIN 1 TAB PO SCH (09:23)
--- NOTE | 2023-11-04 11:50 | Obstetrical Progress Note ---
Date of Service November 04, 2023 Assessment & Plan (1) Normal course: Continue routine PP care, anticipate d/c home tomorrow if doing well Subjective Ambulation: ambulating normally Voiding: no voiding problems Passing Gas:: Yes Diet Tolerance:: regular diet Current Pain Level(1-10): [address] Davenport Doing well, CPAP at bedside. Only concern if that patient is worried HS will come back if shes not bathing in bath. Has not done sitz bath yet Physical Exam Constitutional WD/WN, vitals as above Respiratory normal respiratory effort, lungs clear to auscultation Cardiovascular RRR, no murmur, no edema Gastrointestinal (Abdomen) normal bowel sounds, soft, nontender, no hepatosplenomegaly obese, fundus below U Results & Data Vital Signs (Past 12 Hours) Vital Signs Temp Pulse Resp BP Pulse Ox O2 Del Method 11/04/23 08:20 36.8 C 84 18 125/83 97 Room Air 11/04/23 03:03 36.8 C 86 20 136/85 97 Room Air Laboratory Results Laboratory Results WBC 9.61 K/ul (4.8-10.8) 11/04/23 06:01 RBC 3.71 M/uL (4.20-5.40) L 11/04/23 06:01 Hgb 10.6 g/dl (12.0-16.0) L 11/04/23 06:01 Hct 33.0 % (37.0-47.0) L 11/04/23 06:01 MCV 88.9 fL (80.0-100.0) 11/04/23 06:01 MCH 28.6 pg (25.0-34.0) 11/04/23 06:01 MCHC 32.1 g/dL (32.0-36.0) 11/04/23 06:01 RDW Std Deviation 49.0 fL (36.4-46.3) H 11/04/23 06:01 RDW Coeff of Guillermo 15.0 % (11.5-14.5) H 11/04/23 06:01 Plt Count 226 K/uL (130-400) 11/04/23 06:01 MPV 10.0 fL (9.4-12.4) 11/04/23 06:01 POC Glucose 94 mg/dl (70-99) 11/02/23 14:24 Urine Opiates Screen Neg (Neg) 11/02/23 Unknown Ur Methadone, Qual Neg (Neg) 11/02/23 Unknown Urine Barbiturates Neg (Neg) 11/02/23 Unknown Ur Phencyclidine (PCP) Neg (Neg) 11/02/23 Unknown U Amphetamin/Meth Scrn Neg (Neg) 11/02/23 Unknown MDMA (Ecstasy) Screen Neg (Neg) 11/02/23 Unknown U Benzodiazepines Scrn Neg (Neg) 11/02/23 Unknown Ur Cocaine Metabolite Neg (Neg) 11/02/23 Unknown U Marijuana (THC) Screen Neg (Neg) 11/02/23 Unknown Blood Type O Positive 11/02/23 12:31 Antibody Screen NEGATIVE 11/02/23 12:31
[2023-11-04] MEDS: ePHEDrine sulfate 50 MG/ML AMP ONE (19:44)
[2023-11-04] MEDS: DIPHTHER/TETAN/PERTUS Vaccine (Tdap, Adol/Adult) 0.5mL IM ONE (19:46)
[2023-11-04] MEDS: bisacodyL 5 MG TABEC PO SCH (19:47)
[2023-11-04] MEDS: ACETAMINOPHEN 325 MG TAB PO PRN (20:46)
[2023-11-05 06:39] LABS: Hematocrit (blood only) 35.7 % (37.0-47.0); Hemoglobin 11.7 g/dl (12.0-16.0)
--- NOTE | 2023-11-05 08:10 | Obstetrical Progress Note ---
Date of Service November 05, 2023 Assessment & Plan (1) Normal course: Continue routine PP care, d/c home today with follow up with Dr Davenport Subjective Ambulation: ambulating normally Voiding: no voiding problems Passing Gas:: Yes Diet Tolerance:: regular diet Lochia:: Small Feeding Type:: breast feeding Current Pain Level(1-10): 0 Patient doing well, just put to bed. Has been able to breast-feed and formula feeding. Wants to be discharged home today. Bleeding has improved significantly since yesterday. Denies any depression or anxiety at this time. Would like to go home Physical Exam Constitutional WD/WN, vitals as above Respiratory normal respiratory effort, lungs clear to auscultation Cardiovascular RRR, no murmur, no edema Gastrointestinal (Abdomen) normal bowel sounds, soft, nontender, no hepatosplenomegaly Results & Data Vital Signs (Past 12 Hours) Vital Signs Temp Pulse Resp BP Pulse Ox O2 Del Method 11/04/23 23:00 36.4 C L 79 18 120/80 98 Room Air 11/04/23 20:20 36.9 C 83 18 124/82 97 Room Air Laboratory Results Laboratory Results WBC 9.61 K/ul (4.8-10.8) 11/04/23 06:01 RBC 3.71 M/uL (4.20-5.40) L 11/04/23 06:01 Hgb 11.7 g/dl (12.0-16.0) L 11/05/23 06:17 Hct 35.7 % (37.0-47.0) L 11/05/23 06:17 MCV 88.9 fL (80.0-100.0) 11/04/23 06:01 MCH 28.6 pg (25.0-34.0) 11/04/23 06:01 MCHC 32.1 g/dL (32.0-36.0) 11/04/23 06:01 RDW Std Deviation 49.0 fL (36.4-46.3) H 11/04/23 06:01 RDW Coeff of Guillermo 15.0 % (11.5-14.5) H 11/04/23 06:01 Plt Count 226 K/uL (130-400) 11/04/23 06:01 MPV 10.0 fL (9.4-12.4) 11/04/23 06:01 POC Glucose 94 mg/dl (70-99) 11/02/23 14:24 Urine Opiates Screen Neg (Neg) 11/02/23 Unknown Ur Methadone, Qual Neg (Neg) 11/02/23 Unknown Urine Barbiturates Neg (Neg) 11/02/23 Unknown Ur Phencyclidine (PCP) Neg (Neg) 11/02/23 Unknown U Amphetamin/Meth Scrn Neg (Neg) 11/02/23 Unknown MDMA (Ecstasy) Screen Neg (Neg) 11/02/23 Unknown U Benzodiazepines Scrn Neg (Neg) 11/02/23 Unknown Ur Cocaine Metabolite Neg (Neg) 11/02/23 Unknown U Marijuana (THC) Screen Neg (Neg) 11/02/23 Unknown Blood Type O Positive 11/02/23 12:31 Antibody Screen NEGATIVE 11/02/23 12:31
== END 2023-11-05 13:00 | disposition home or self-care (01) | DRG 807 ==
LOC: OPB 10:44 → 4S1 10:50 → 4E2 11-03 18:01